=== PATIENT | male | born 1965 | race Caucasian/White ===

== ENCOUNTER → 2017-07-04 | Outpatient (CLI) | payer BC ==
--- NOTE | 2017-07-04 14:37 | PCVCIMAG ---
APPROVED REPORT Study performed: 07/04/2017 11:06:19 EXAM: Comprehensive 2D, Doppler, and color-flow Echocardiogram Patient Location: Echo lab Status: routine BSA: 2.43 HR: 59 bpm Rhythm: NSR Other Information Study Quality: Technically Limited Risk Factors: Cardiac Risk Factors: Hyperlipidemia, HTN Indications CAD Hypertension/HDD Stent, Hyperlipidemia 2D Dimensions IVSd: 20.35 (7-11mm)LVOT Diam: 20.14 (18-24mm) LVDd: 44.65 mm PWd: 13.09 (7-11mm)Ascending Ao: 38.96 (22-36mm) LVDs: 25.98 (25-40mm) Left Atrium: 45.81 (27-40mm) Aortic Root: 29.56 mm LV Single Plane 4CH: 49.53 % Rinaldi's LVEF: 72.93 % Volumes Left Atrial Volume (Systole) Single Plane 4CH: 45.61 mLSingle Plane 2CH: 37.49 mL LA ESV Index: 19.00 mL/m2 Aortic Valve AoV Peak Abdoulaye.: 1.33 m/s AO Peak Gr.: 7.04 mmHg Mitral Valve E/A Ratio: 1.0 MV Decel. Time: 255.71 ms MV E Max Abdoulaye.: 0.69 m/s MV A Abdoulaye.: 0.69 m/s IVRT: 96.89 ms Pulmonary Vein P Vein S: 0.55 m/sP Vein A: 0.28 m/s P Vein D: 0.37 m/sP Vein A Dur.: 76.1 msec P Vein S/D Ratio: 1.49 Left Ventricle The left ventricle is normal size. There is normal LV segmental wall motion. Mild concentric left ventricular hypertrophy. Left ventricular systolic function is normal. The left ventricular ejection fraction is within the normal range. LVEF is >55%. The left ventricular diastolic function is normal. Right Ventricle The right ventricle is normal size. The right ventricular systolic function is normal. Atria The left atrium size is normal. The right atrium size is normal. Aortic Valve The aortic valve is normal in structure. No aortic regurgitation is present. There is no aortic valvular stenosis. Mitral Valve The mitral valve is normal in structure. There is no mitral valve regurgitation noted. No evidence of mitral valve stenosis. Tricuspid Valve The tricuspid valve is normal in structure. There is no tricuspid valve regurgitation noted. Pulmonic Valve The pulmonary valve is normal in structure. There is no pulmonic valvular regurgitation. Great Vessels The aortic root is normal in size. IVC is normal in size and collapses with >50% inspiration Pericardium There is no pericardial effusion. <Conclusion> The left ventricle is normal size. Mild concentric left ventricular hypertrophy. LVEF is >55%. The left ventricular diastolic function is normal. The right ventricle is normal size. The left atrium size is normal. The aortic valve is normal in structure. There is no mitral valve regurgitation noted. There is no tricuspid valve regurgitation noted. There is no pericardial effusion.
== END | disposition home or self-care (01) ==
LOC: PCVCIMAG 11:14
PROVIDERS: ATTEND Internal Medicine Cardiovascular Disease
DX: I25.10 Atherosclerotic heart disease of native coronary artery without angina pectoris (principal); I10 Essential (primary) hypertension; E78.00 Pure hypercholesterolemia, unspecified; R00.0 Tachycardia, unspecified; Z79.899 Other long term (current) drug therapy
CPT/HCPCS: 93005; 93306; G0463

== ENCOUNTER → 2017-07-26 | Outpatient (CLI) | payer BC ==
[~2017-07-26] MED LIST: REGADENOSON 0.4 MG/5 ML DISP.SYRIN. IV ONE
--- NOTE | 2017-07-26 10:13 | PCVCIMAG ---
EXAM: BILATERAL RENAL ULTRASOUND AND BILATERAL RENAL DUPLEX INDICATION: Hypertension FINDINGS: Right kidney: Length measures 13.5 cm. No hydronephrosis or extensive renal scarring. Right renal duplex: Adequate technical quality. No sonographic evidence of renal artery stenosis. The aortic to renal artery ratio is 0.9. The renal vein is patent. Left kidney: Length measures 13.4 cm. No hydronephrosis or extensive renal scarring. Left renal duplex: Adequate technical quality. No sonographic evidence of renal artery stenosis. The aortic to renal artery ratio is 1.0. The renal vein is patent. Bladder: No obvious abnormalities. IMPRESSION: No significant renal artery stenosis. No hydronephrosis bilaterally. LOC:[id number]
== END | disposition home or self-care (01) ==
LOC: PCVCIMAG 07:56
PROVIDERS: ATTEND Internal Medicine Cardiovascular Disease
DX: I10 Essential (primary) hypertension (principal); E78.5 Hyperlipidemia, unspecified
CPT/HCPCS: 76770; 93975; J2785